=== PATIENT | female | born 1960 | race Caucasian/White ===

== ENCOUNTER 2024-05-31 12:10 | Day surgery (SDC) | payer OTHER, SELFPAY ==
[2024-05-31 12:36] VITALS: BP 120/74; PULSE 88; RESP 20; TEMP 36.7; O2SAT 96
[2024-05-31] MEDS: Tropicam./Phenyleph. (1/2.5%) 5 ML BTL OD ×3 (12:58→13:10)
--- NOTE | 2024-05-31 13:18 | W.ANESPRE ---
General Info Date of Service Date Performed: 05/31/24 Height: 5 ft 4 in Weight: 70.3 kg Body Mass Index (BMI): 26.6 Surgical Procedure: Operation Date: 05/31/24 14:40 Proposed Procedure Side Surgeon p Cataract Extraction with IOL Implant Right Aquiles Rodriguez MD Meds Allergies and Home Medications Allergies Allergy/AdvReac Type Severity Reaction Status Date / Time bisoprolol Allergy Unknown Skin Rash Verified 05/31/24 12:53 iodine Allergy Hives Verified 05/31/24 12:53 Sulfa (Sulfonamide Allergy Hives Verified 05/31/24 12:53 Antibiotics) absorbable suture material AdvReac Unknown Other (See Uncoded 05/31/24 12:53 Comment) Home Medication ?Medication ?Instructions ?Recorded rosuvastatin 10 mg tablet 40 mg PO DAILY 11/02/21 cholecalciferol (vitamin D3) 25 25 mcg PO DAILY 11/23/22 mcg (1,000 unit) capsule conjugated estrogens 0.625 mg/gram 0.625 mg vaginal .COMPLEX 11/23/22 vaginal cream (Premarin) cyanocobalamin (vitamin B-12) 1,000 mcg PO DAILY 11/23/22 1,000 mcg capsule omeprazole 40 mg capsule,delayed 40 mg PO DAILY 11/23/22 release trazodone 100 mg tablet 100 mg PO QHS PRN 11/23/22 diclofenac sodium 100 mg 100 mg PO DAILY 05/28/24 tablet,extended release 24 hr methylphenidate HCl 54 mg 54 mg PO DAILY 05/28/24 tablet,extended release 24 hr (Concerta) venlafaxine 150 mg 150 mg PO DAILY 05/28/24 capsule,extended release 24 hr (Effexor XR) venlafaxine 37.5 mg 37.5 mg PO DAILY 05/28/24 capsule,extended release 24 hr (Effexor XR) vitamin B complex (Vitamins B 1 tab PO DAILY 05/28/24 Complex tablet) Current Visit Medications: Current Medications Generic Name Dose Route Start Last Admin Trade Name Freq PRN Reason Stop Dose Admin Acetaminophen 1,000 mg 05/31/24 06:00 Acetaminophen 500 Mg Tab PO 06/30/24 05:59 Q4H PRN PRN Balanced Salt Solution 500 ml 05/31/24 06:00 Balanced Salt Soln.-Plus 500 Ml Bag OP 06/30/24 05:59 DIRECTED SUSAN Miscellaneous Medication 0 ml 05/31/24 06:00 Prednisolone 1%, Moxifloxacin 0.5%, Bromfenac 0.09% 5.6ml Btl OD 06/30/24 05:59 DIRECTED SUSAN Miscellaneous Medication 0 ml 05/31/24 06:00 05/31/24 13:10 Tropicam./Phenyleph. (1/2.5%) 5 Ml Btl OD 06/30/24 05:59 1 drp DIRECTED SUSAN Administration Tetracaine HCl 0 ml 05/31/24 06:00 Tetracaine 0.5% 4 Ml Btl OD 06/30/24 05:59 DIRECTED SUSAN PFSH Active Problems Active Problems: Problem Status Onset Code Posterior subcapsular age-related cataract, right eye Acute H25.041 Nuclear age-related cataract, right eye Acute H25.11 Acquired hammertoe of right foot Acute M20.41 Acquired hammertoe of left foot Acute M20.42 Hallux valgus (acquired), left foot Acute M20.12 Hallux valgus (acquired), right foot Acute M20.11 Callus under metatarsal head Acute L84 TMJ (temporomandibular joint disorder) Acute M26.609 Ear fullness Acute H93.8X9 Sensorineural hearing loss (SNHL) of both ears Acute H90.3 Atrial fibrillation Chronic I48.91 Hyperlipidemia Acute E78.5 Medical History Medical History Mood disorder History of hormone replacement therapy Bilateral knee pain Menopause Adjustment disorder Surgical History Surgical History History of bladder surgery 2021-Sling History of total knee replacement 2021 Status post breast reduction History of bunionectomy H/O: hysterectomy H/O colonoscopy 12/18/20 Tobacco Smoking/Tobacco Use Status: Former Tobacco Use Alcohol Alcohol Intake: never Substance Use Substance use: Never Substance use type: marijuana and sedatives Vital Signs and Lab Results Vital Signs Most Recent Vital Signs in EMR: Most Recent Vital Signs Temp Pulse Resp BP Pulse Ox 36.7 C 88 20 120/74 96 05/31/24 12:36 05/31/24 12:36 05/31/24 12:36 05/31/24 12:36 05/31/24 12:36 Lab Results Blood Type / Crossmatch: No Data to Display Complete Blood Count: No Data to Display Complete Metabolic Panel: No Data to Display Liver Function Panel: No Data to Display Coagulation Panel: No Data to Display Cardiac Panel: No Data to Display Arterial Blood Gas: No Data to Display Venous Blood Gas: No Data to Display Pancreas Panel: No Data to Display Thyroid Panel: No Data to Display Infectious Disease: No Data to Display Blood Cultures: No Data to Display Toxicology Panel: No Data to Display Anesthesia Assessment and Plan Anesthesia History Personal History: No History of Anesthesia Complications Family History: No Family History of Anesthesia Complications Exercise Tolerance Exercise Tolerance: Metabolic Equivalents>4 Pertinent Negatives Pertinent Negatives: No Major Cardiovascular Symptoms or Complaints and No Major Pulmonary Symptoms or Complaints Cardiac & Pulmonary Exam Cardiac Exam: Normal S1/S2 Heart Sounds Pulmonary Exam: Clear Bilateral Breath Sounds Implantable Cardiac Device Does patient have a Pacemaker or an ICD?: No Airway Exam Known Difficult Airway: No Mallampati Class: 2 Mouth Opening: Normal (> 3cm) Thyromental Distance: Greater than 3 cm Neck Range of Motion: Full ROM Neck Circumference: Normal Teeth Condition: Normal Dentition ASA Classification ASA Score: ASA 2 Emergency Case?: No NPO Status NPO Status: NPO Clears >2 hours, Solids >8 hours Anesthesia Plan Resuscitation Status: Full Code Anesthesia Technique: MAC Anesthesia Airway Planned: Natural Airway Monitors Used: Standard Monitors Preoperative Comments:: HUONG given
[2024-05-31 13:30] VITALS: BMI 26.6
[2024-05-31] MEDS: Tetracaine 0.5% 4 ML BTL OD (13:41)
[2024-05-31] MEDS: Duovisc Viscoelastic System EACH 1 EACH (13:47)
[2024-05-31] MEDS: Lidocaine 1% Pres-Free 5 ML VIAL (13:48)
[2024-05-31] MEDS: Povidone-Iodine Ophth 30 ML BTL (13:49)
[2024-05-31] MEDS: Phenylephrine/Lidocaine (15/10) MG/ML 1 ML VIAL (13:49)
[2024-05-31] MEDS: Prednisolone 1%, Moxifloxacin 0.5%, Bromfenac 0.09% 5.6ML BTL OD (13:50)
[2024-05-31] MEDS: Balanced Salt Soln.-PLUS 500 ML BAG OP (13:50)
--- NOTE | 2024-05-31 14:01 | W.PM.DSUDISC ---
Date of service: 05/31/24 Discharge Plan Disposition Patient Disposition: Home Discharge Details Attending Provider: Aquiles Rodriguez Primary Care Provider: Anusha Valera Home Meds and New Rx's Prescriptions: No Action omeprazole 40 mg capsule,delayed release(DR/EC) 40 mg PO DAILY Premarin 0.625 mg/gram cream 0.625 mg vaginal .COMPLEX Rx Instructions: 0.625 mg vaginally; off 5 days; repeat cycle to apply Mon/ trazodone 100 mg tablet 100 mg PO QHS PRN cyanocobalamin (vitamin B-12) 1,000 mcg capsule 1,000 mcg PO DAILY cholecalciferol (vitamin D3) 25 mcg (1,000 unit) capsule 25 mcg PO DAILY rosuvastatin 10 mg tablet 40 mg PO DAILY venlafaxine [Effexor XR] 37.5 mg capsule,extended release 24hr 37.5 mg PO DAILY venlafaxine [Effexor XR] 150 mg capsule,extended release 24hr 150 mg PO DAILY vitamin B complex [Vitamins B Complex] Tablet 1 tab PO DAILY diclofenac sodium 100 mg tablet extended release 24 hr 100 mg PO DAILY methylphenidate HCl [Concerta] 54 mg tablet extended release 24hr 54 mg PO DAILY Discharge Instructions Stand Alone Forms: DSU Post-Op CataractIzabella ([facility]U) Discharge Orders Discharge Orders: Discharge Order (Routine); Ordered 05/31/24 Ordered By: Aquiles Rodriguez DS: Diagnosis Discharge Diagnosis (1) Posterior subcapsular age-related cataract, right eye: Status: Resolved (2) Nuclear age-related cataract, right eye: Status: Resolved
--- NOTE | 2024-05-31 14:02 | W.PM.OP ---
Operative Note Operative Note PRE-OP DIAGNOSIS: Nuclear/posterior subcapsular cataract, right eye POST-OP DIAGNOSIS: same PROCEDURE: Cataract extraction using phacoemulsification with intraocular lens implant, right eye SURGEON: Aquiles Rodriguez ANESTHESIA TYPE: Local By Surgeon and MAC Refer to Anesthesia Record ESTIMATED BLOOD LOSS: 0 PATHOLOGY: none sent COMPLICATIONS: None Patient was transported to: same day Patient's condition: stable Implants: Cayden [employer] Cayden Tecnis Eyhance [id number] Indications: Progressive visual loss due to cataract, right eye Procedure Description: CATARACT SURGERY OPERATIVE REPORT PREOPERATIVE DIAGNOSIS: 1. Nuclear/posterior subcapsular cataract, right eye POSTOPERATIVE DIAGNOSIS: Same OPERATION: 1. Cataract extraction using phacoemulsification with posterior chamber intraocular lens implant, right eye. IOL: IOL Retail Support Associate/Model: Cayden & Cayden Tecnis Eyhance DIB00 IOL Power: + 24.0 diopters IOL Serial Number: [id number] Optic Diameter: 6.0mm Haptic/Overall Diameter: 13.0mm PHACO INFO: TomasMangstorurion Vision System with OZil and Active Fluidics Cumulative Dispersed Energy (CDE): 4.33 seconds SURGEON: Aquiles Rodriguez MD, RADHA ANESTHESIA: Monitored Anesthesia Care (MAC), with local sub-tenon's anesthetic infiltration COMPLICATIONS: None SPECIMENS: None INDICATIONS FOR PROCEDURE: The patient is a 63-year-old lady with history of diminished visual acuity in her right eye secondary to the development of nuclear/posterior subcapsular cataract. She is significantly symptomatic that she desires cataract surgery in attempt to improve and maximize her vision. The option of cataract surgery was offered to the patient and she wished to proceed. See office notes for detailed information. PROCEDURE: The correct surgical eye was identified and marked as the right eye and the pupil was dilated in the preoperative area using mydriatics and cycloplegics. The dilated pupil size was 6.0 mm. Oral sedation was administered in the form of an Imprimis MKO Melt (midazolam 3mg/ketamine 25mg/ondansetron 2mg). The patient was brought to the operating room where cardiopulmonary monitoring was instituted and surgical time-out was performed, confirming the correct operative eye and IOL power. Topical anesthesia was administered and ophthalmic povidone-iodine 5% was instilled into the conjunctival fornices. The samir-ocular area was prepped with Betadine 10% solution and draped in the usual sterile fashion for intraocular surgery, including an aperture drape. A Tegaderm transparent film dressing was cut in half and used to cover the lashes and lid margins. Care was taken to sequester the lashes and lid margins under the Tegaderm dressing. A lid speculum was placed between the lids of the operative eye and the Tomas LuxOR Revalia operating microscope was maneuvered into position. Jair scissors were then used to make a conjunctival buttonhole approximately 6mm posterior to the limbus in the inferonasal quadrant. Blunt dissection was carried out to expose bare sclera, and a blunt-tipped sub-tenon?s anesthesia cannula was introduced and passed posteriorly along the globe where non-preserved plain lidocaine was injected into posterior sub-Tenon?s space. A sideport knife was used to make a paracentesis port. Intraocular phenylephrine/lidocaine was injected into the anterior chamber. The anterior chamber was filled with viscoelastic. A keratome knife was used to construct a 2-plane clear corneal tunnel extending 2.0mm into clear cornea. A flap was raised on the anterior capsule and capsulorhexis forceps were used to complete a continuous curvilinear capsulorhexis of 5.0 mm. Balanced salt solution was then used to perform cortical cleaving hydrodissection and nuclear hydrodelineation until the lens could be freely rotated within the capsular bag. The lens nucleus was then disassembled and removed within the capsular bag and iris plane using phacoemulsification. Residual cortical material was removed using the I/A handpiece. The posterior capsule was carefully polished to remove as much residual lens epithelial cells as safely possible. The capsular bag was then inflated and the anterior chamber deepened with cohesive viscoelastic. The lens implant described above was inserted into the capsular bag using the Cayden and Samson Simplicity pre-loaded injector. A Kuglen hook was used to dial the IOL into position. Residual viscoelastic was then removed first from posterior to the IOL, then from the anterior chamber using the I/A handpiece. The lens implant was noted to center nicely within the capsular bag. The incisions were stromally hydrated, and the anterior chamber was reformed using BSS. Then 0.5cc of moxifloxacin 1.0mg/ml were injected into the capsular bag and anterior chamber. The incisions were checked with a Weck spear and found to be secure. Several drops of ophthalmic povidone-iodine 5% were then applied to the eye followed by two drops ocombination steroid/NSAID/antibiotic solution. The drapes were removed and a clear plastic protective eye shield was placed over the eye. The patient was then returned to Same Day Surgery in stable condition. Date of Procedure: 05/31/24
[2024-05-31 14:06] VITALS: BP 110/83; PULSE 83; RESP 17; TEMP 36.3; O2SAT 100
[2024-05-31 14:35] VITALS: BP 108/84; PULSE 82; RESP 20; TEMP 36.4; O2SAT 97
--- NOTE | 2024-05-31 14:38 | W.ANESPOSTOP ---
Postoperative Evaluation Date, Time and Location Date Performed: 05/31/24 Time Performed: 14:06 Patient Location: Day Surgery Unit Vital Signs Most Recent Imported Vital Signs: Most Recent Vital Signs Temp Pulse Resp BP Pulse Ox 36.3 C L 83 17 110/83 100 05/31/24 14:06 05/31/24 14:06 05/31/24 14:06 05/31/24 14:06 05/31/24 14:06 Pain Score Most Recent Pain Score: Most Recent Pain Score Pain Level 0 05/31/24 14:06 Assessment Mental Status: Awake (Alert & Oriented to Patient Baseline) Airway and Respiratory Function: Patent airway with normal (patient baseline) respiratory exam Cardiovascular Function: Hemodynamically Stable Hydration Status: Adequately Hydrated Nausea & Vomiting: No Nausea or Vomiting Pain: Pt. Denies Any Pain Peripheral Nerve Block: Patient did not receive a nerve block
== END 2024-05-31 14:42 | disposition home or self-care (01) ==
LOC: SUR 12:10
PROVIDERS: PCP Nurse Practitioner Family; Visit Provider Ophthalmology
PROC: (CPT 66984; principal; 2024-05-31 14:30)
DX: H25.041 Posterior subcapsular polar age-related cataract, right eye (principal); H25.11 Age-related nuclear cataract, right eye
CPT/HCPCS: 66984; 00123; V2632; J2003

== ENCOUNTER 2024-06-07 06:45 | Day surgery (SDC) | payer OTHER, SELFPAY ==
--- NOTE | 2024-06-07 06:29 | ANES.PREOP_ITS ---
General Info Date of Service Date Performed: 06/07/24 Height: 5 ft 4 in Weight: 70.3 kg Body Mass Index (BMI): 26.6 Surgical Procedure: Operation Date: 06/07/24 08:40 Proposed Procedure Side Surgeon p Cataract Extraction with IOL Implant Left Aquiles Rodriguez MD Meds Allergies and Home Medications Allergies Allergy/AdvReac Type Severity Reaction Status Date / Time bisoprolol Allergy Unknown Skin Rash Verified 06/07/24 07:01 iodine Allergy Hives Verified 06/07/24 07:01 Sulfa (Sulfonamide Allergy Hives Verified 06/07/24 07:01 Antibiotics) absorbable suture material AdvReac Unknown Other (See Uncoded 06/07/24 07:01 Comment) Home Medication ?Medication ?Instructions ?Recorded rosuvastatin 10 mg tablet 40 mg PO DAILY 11/02/21 cholecalciferol (vitamin D3) 25 25 mcg PO DAILY 11/23/22 mcg (1,000 unit) capsule conjugated estrogens 0.625 mg/gram 0.625 mg vaginal .COMPLEX 11/23/22 vaginal cream (Premarin) cyanocobalamin (vitamin B-12) 1,000 mcg PO DAILY 11/23/22 1,000 mcg capsule omeprazole 40 mg capsule,delayed 40 mg PO DAILY 11/23/22 release trazodone 100 mg tablet 100 mg PO QHS PRN 11/23/22 diclofenac sodium 100 mg 100 mg PO DAILY 05/28/24 tablet,extended release 24 hr methylphenidate HCl 54 mg 54 mg PO DAILY 05/28/24 tablet,extended release 24 hr (Concerta) venlafaxine 150 mg 150 mg PO DAILY 05/28/24 capsule,extended release 24 hr (Effexor XR) venlafaxine 37.5 mg 37.5 mg PO DAILY 05/28/24 capsule,extended release 24 hr (Effexor XR) vitamin B complex (Vitamins B 1 tab PO DAILY 05/28/24 Complex tablet) Current Visit Medications: Current Medications Generic Name Dose Route Start Last Admin Trade Name Freq PRN Reason Stop Dose Admin Acetaminophen 1,000 mg 06/07/24 06:00 Acetaminophen 500 Mg Tab PO 07/07/24 05:59 Q4H PRN PRN Balanced Salt Solution 500 ml 06/07/24 06:00 Balanced Salt Soln.-Plus 500 Ml Bag OP 07/07/24 05:59 DIRECTED SUSAN Miscellaneous Medication 0 ml 06/07/24 06:00 Prednisolone 1%, Moxifloxacin 0.5%, Bromfenac 0.09% 5.6ml Btl OS 07/07/24 05:59 DIRECTED [facility] Miscellaneous Medication 0 ml 06/07/24 06:00 Tropicam./Phenyleph. (1/2.5%) 5 Ml Btl OS 07/07/24 05:59 DIRECTED SUSAN Tetracaine HCl 0 ml 06/07/24 06:00 Tetracaine 0.5% 4 Ml Btl OS 07/07/24 05:59 DIRECTED SUSAN PFSH Active Problems Active Problems: Problem Status Onset Code Posterior subcapsular age-related cataract of left eye Acute H25.042 Nuclear age-related cataract, left eye Acute H25.12 Posterior subcapsular age-related cataract, right eye Resolved H25.041 Nuclear age-related cataract, right eye Resolved H25.11 Acquired hammertoe of right foot Acute M20.41 Acquired hammertoe of left foot Acute M20.42 Hallux valgus (acquired), left foot Acute M20.12 Hallux valgus (acquired), right foot Acute M20.11 Callus under metatarsal head Acute L84 TMJ (temporomandibular joint disorder) Acute M26.609 Ear fullness Acute H93.8X9 Sensorineural hearing loss (SNHL) of both ears Acute H90.3 Atrial fibrillation Chronic I48.91 Hyperlipidemia Acute E78.5 Medical History Medical History Mood disorder History of hormone replacement therapy Bilateral knee pain Menopause Adjustment disorder Surgical History Surgical History History of bladder surgery 2021-Sling History of total knee replacement 2021 Status post breast reduction History of bunionectomy H/O: hysterectomy H/O colonoscopy 12/18/20 Tobacco Smoking/Tobacco Use Status: Former Tobacco Use Alcohol Alcohol Intake: never Substance Use Substance use: Never Substance use type: marijuana and sedatives Vital Signs and Lab Results Vital Signs Most Recent Vital Signs in EMR: Temp Pulse Resp BP Pulse Ox 36.4 C L 84 18 116/77 97 06/07/24 06:49 06/07/24 06:49 06/07/24 06:49 06/07/24 06:49 06/07/24 06:49 Lab Results Blood Type / Crossmatch: No Data to Display Complete Blood Count: No Data to Display Complete Metabolic Panel: No Data to Display Liver Function Panel: No Data to Display Coagulation Panel: No Data to Display Cardiac Panel: No Data to Display Arterial Blood Gas: No Data to Display Venous Blood Gas: No Data to Display Pancreas Panel: No Data to Display Thyroid Panel: No Data to Display Infectious Disease: No Data to Display Blood Cultures: No Data to Display Toxicology Panel: No Data to Display Anesthesia Assessment and Plan Anesthesia History Personal History: No History of Anesthesia Complications Family History: No Family History of Anesthesia Complications Exercise Tolerance Exercise Tolerance: Metabolic Equivalents>4 Cardiac & Pulmonary Exam Cardiac Exam: Normal S1/S2 Heart Sounds Pulmonary Exam: Clear Bilateral Breath Sounds Implantable Cardiac Device Does patient have a Pacemaker or an ICD?: No Airway Exam Known Difficult Airway: No Mallampati Class: 2 Mouth Opening: Normal (> 3cm) Thyromental Distance: Greater than 3 cm Neck Range of Motion: Full ROM Neck Circumference: Normal Teeth Condition: Normal Dentition ASA Classification ASA Score: ASA 2 Emergency Case?: No NPO Status NPO Status: NPO Clears >2 hours, Solids >8 hours Anesthesia Plan Resuscitation Status: Full Code Anesthesia Technique: MAC Anesthesia Airway Planned: Natural Airway Monitors Used: Standard Monitors Preoperative Comments:: Repeat cataract MKO given last time, no issues. no health history changes.
[2024-06-07 06:49] VITALS: BP 116/77; PULSE 84; RESP 18; TEMP 36.4; O2SAT 97
[2024-06-07] MEDS: Tropicam./Phenyleph. (1/2.5%) 5 ML BTL OS ×3 (07:04→07:13)
[2024-06-07 07:28] VITALS: BMI 26.6
[2024-06-07] MEDS: Lidocaine 1% Pres-Free 5 ML VIAL (08:23)
[2024-06-07] MEDS: Duovisc Viscoelastic System EACH 1 EACH (08:25)
[2024-06-07] MEDS: Povidone-Iodine Ophth 30 ML BTL (08:26)
[2024-06-07] MEDS: Phenylephrine/Lidocaine (15/10) MG/ML 1 ML VIAL (08:26)
[2024-06-07] MEDS: Balanced Salt Soln.-PLUS 500 ML BAG OP (08:27)
[2024-06-07] MEDS: Tetracaine 0.5% 4 ML BTL OS (08:28)
[2024-06-07] MEDS: Prednisolone 1%, Moxifloxacin 0.5%, Bromfenac 0.09% 5.6ML BTL OS (08:28)
[2024-06-07 08:39] VITALS: BP 106/68; PULSE 73; RESP 16; TEMP 36.2; O2SAT 96
--- NOTE | 2024-06-07 08:39 | W.PM.DSUDISC ---
Date of service: 06/07/24 Discharge Plan Disposition Patient Disposition: Home Discharge Details Attending Provider: Aquiles Rodriguez Primary Care Provider: Anusha Valera Home Meds and New Rx's Prescriptions: No Action omeprazole 40 mg capsule,delayed release(DR/EC) 40 mg PO DAILY Premarin 0.625 mg/gram cream 0.625 mg vaginal .COMPLEX Rx Instructions: 0.625 mg vaginally; off 5 days; repeat cycle to apply Mon/ trazodone 100 mg tablet 100 mg PO QHS PRN cyanocobalamin (vitamin B-12) 1,000 mcg capsule 1,000 mcg PO DAILY cholecalciferol (vitamin D3) 25 mcg (1,000 unit) capsule 25 mcg PO DAILY rosuvastatin 10 mg tablet 40 mg PO DAILY venlafaxine [Effexor XR] 37.5 mg capsule,extended release 24hr 37.5 mg PO DAILY venlafaxine [Effexor XR] 150 mg capsule,extended release 24hr 150 mg PO DAILY vitamin B complex [Vitamins B Complex] Tablet 1 tab PO DAILY diclofenac sodium 100 mg tablet extended release 24 hr 100 mg PO DAILY methylphenidate HCl [Concerta] 54 mg tablet extended release 24hr 54 mg PO DAILY Discharge Instructions Stand Alone Forms: DSU Post-Op CataractIzabella ([facility]U) Discharge Orders Discharge Orders: Discharge Order (Routine); Ordered 06/07/24 Ordered By: Aquiles Rodriguez DS: Diagnosis Discharge Diagnosis (1) Posterior subcapsular age-related cataract of left eye: Status: Resolved (2) Nuclear age-related cataract, left eye: Status: Resolved
--- NOTE | 2024-06-07 08:41 | ROE_ITS ---
Operative Note Operative Note PRE-OP DIAGNOSIS: Nuclear/posterior subcapsular cataract, left eye POST-OP DIAGNOSIS: same PROCEDURE: Cataract extraction using phacoemulsification with intraocular lens implant, left eye SURGEON: Aquiles Rodriguez ANESTHESIA TYPE: Local By Surgeon and MAC Refer to Anesthesia Record PATHOLOGY: none sent COMPLICATIONS: None Patient was transported to: same day Patient's condition: stable Implants: Cayden and Cayden Tecnis Eyhance [id number] Indications: Progressive decreased vision due to cataract, left eye Procedure Description: CATARACT SURGERY OPERATIVE REPORT PREOPERATIVE DIAGNOSIS: 1. Nuclear/posterior subcapsular cataract, left eye POSTOPERATIVE DIAGNOSIS: Same OPERATION: 1. Cataract extraction using phacoemulsification with posterior chamber intraocular lens implant, left eye. IOL: IOL Carpenter General/Model: Cayden & Cayden Tecnis Eyhance DIB00 IOL Power: + 23.5 diopters IOL Serial Number: [id number] Optic Diameter: 6.0 mm Haptic/Overall Diameter: 13.0 mm PHACO INFO: Tomas LogicLadderurion Vision System with OZil and Active Fluidics Cumulative Dispersed Energy (CDE): 4.88 seconds SURGEON: Aquiles Rodriguez MD, RADHA ANESTHESIA: Monitored A [facility] (MAC), with local sub-tenon's anesthetic infiltration COMPLICATIONS: None SPECIMENS: None INDICATIONS FOR PROCEDURE: The patient is a 63-year-old lady with history of diminished visual acuity in both eyes secondary to the development of bilateral nuclear/posterior subcapsular cataract. She is significantly symptomatic that she desires cataract surgery and attempt to improve and maximize her vision. She has already undergone cataract surgery in the right eye and is doing well postoperatively. She now presents for cataract surgery in the left eye. See office notes for detailed information. PROCEDURE: The correct surgical eye was identified and marked as the left eye and the pupil was dilated in the preoperative area using mydriatics and cycloplegics. The dilated pupil size was 7.0 mm. Oral sedation was administered in the form of an Imprimis MKO Melt (midazolam 3mg/ketamine 25mg/ondansetron 2mg). The patient was brought to the operating room where cardiopulmonary monitoring was instituted and surgical time-out was performed, confirming the correct operative eye and IOL power. Topical anesthesia was administered and ophthalmic povidone-iodine 5% was instilled into the conjunctival fornices. The samir-ocular area was prepped with Betadine 10% solution and draped in the usual sterile fashion for intraocular surgery, including an aperture drape. A Tegaderm transparent film dressing was cut in half and used to cover the lashes and lid margins. Care was taken to sequester the lashes and lid margins under the Tegaderm dressing. A lid speculum was placed between the lids of the operative eye and the Tomas LuxOR Revalia operating microscope was maneuvered into position. Jair scissors were then used to make a conjunctival buttonhole approximately 6mm posterior to the limbus in the inferonasal quadrant. Blunt dissection was carried out to expose bare sclera, and a blunt-tipped sub-tenon?s anesthesia cannula was introduced and passed posteriorly along the globe where non- preserved plain lidocaine was injected into posterior sub-Tenon?s space. A sideport knife was used to make a paracentesis port. Intraocular phenylephrine/lidocaine was injected into the anterior chamber.. The anterior chamber was filled with viscoelastic. A keratome knife was used to construct a 2-plane near-clear corneal tunnel extending 2.0mm into clear cornea. A flap was raised on the anterior capsule and capsulorhexis forceps were used to complete a continuous curvilinear capsulorhexis of 5.0 mm. Balanced salt solution was then used to perform cortical cleaving hydrodissection and nuclear hydrodelineation until the lens could be freely rotated within the capsular bag. The lens nucleus was then disassembled and removed within the capsular bag and iris plane using phacoemulsification. Residual cortical material was removed using the irrigation/aspiration handpiece. The posterior capsule was carefully polished to remove as much residual lens epithelial cells as safely possible. The capsular bag was then inflated and the anterior chamber deepened with viscoelastic. The lens implant described above was inserted into the capsular bag using the Cayden and Cayden Simplicity pre-loaded injector. A Kuglen hook was used to dial the IOL into position. Residual viscoelastic was then removed first from posterior to the IOL, then from the anterior chamber using the I/A handpiece. The lens implant was noted to center nicely within the capsular bag. The incisions were stromally hydrated, and the anterior chamber was reformed using BSS. Then 0.5cc of moxifloxacin 1.0mg/ml were injected into the capsular bag and anterior chamber. The incisions were checked with a Weck spear and found to be secure. Several drops of ophthalmic povidone-iodine 5% were then applied to the eye followed by two drops of Imprimis combination prednisolone/moxifloxacin/nepafenac solution. The drapes were removed and a clear plastic protective eye shield was placed over the eye. The patient was then returned to Same Day Surgery in stable condition. Date of Procedure: 06/07/24
--- NOTE | 2024-06-07 08:55 | W.ANESPOSTOP ---
Postoperative Evaluation Date, Time and Location Date Performed: 06/07/24 Time Performed: 08:45 Patient Location: Day Surgery Unit Vital Signs Most Recent Imported Vital Signs: Most Recent Vital Signs Temp Pulse Resp BP Pulse Ox 36.2 C L 73 16 106/68 96 06/07/24 08:39 06/07/24 08:39 06/07/24 08:39 06/07/24 08:39 06/07/24 08:39 Pain Score Most Recent Pain Score: Most Recent Pain Score Pain Level 0 06/07/24 08:39 Assessment Mental Status: Awake (Alert & Oriented to Patient Baseline) Airway and Respiratory Function: Patent airway with normal (patient baseline) respiratory exam Cardiovascular Function: Hemodynamically Stable Hydration Status: Adequately Hydrated Nausea & Vomiting: No Nausea or Vomiting Pain: Pt. Denies Any Pain Peripheral Nerve Block: Patient did not receive a nerve block
[2024-06-07 09:01] VITALS: BP 97/70; PULSE 88; RESP 16; TEMP 36.3; O2SAT 96
== END 2024-06-07 09:10 | disposition home or self-care (01) ==
LOC: SUR 06:45
PROVIDERS: PCP Nurse Practitioner Family; Visit Provider Ophthalmology
PROC: (CPT 66984; principal; 2024-06-07 08:30)
DX: H25.042 Posterior subcapsular polar age-related cataract, left eye (principal); H25.12 Age-related nuclear cataract, left eye; Z98.41 Cataract extraction status, right eye
CPT/HCPCS: 66984; 00123; V2632; J2003

== ENCOUNTER 2024-11-26 09:59 | Emergency (ER) | payer OTHER, SELFPAY ==
[2024-11-26 10:02] VITALS: BP 140/85; PULSE 100; RESP 16; TEMP 36.6; O2SAT 98
--- NOTE | 2024-11-26 10:11 | W.ED.GENAD ---
Discharge Plan Disposition Patient Disposition: Home Condition: Stable Discharge Details Clinical Impression: Gastroenteritis, Hypomagnesemia Primary Care Provider: Anusha Valera ED Provider: Eulogio Smith Home Meds and New Rx's Prescriptions: New ondansetron 4 mg tablet,disintegrating 4 mg PO Q8H PRNQty: 30 0RF Continued omeprazole 40 mg capsule,delayed release(DR/EC) 40 mg PO DAILY Premarin 0.625 mg/gram cream 0.625 mg vaginal .COMPLEX Rx Instructions: 0.625 mg vaginally; off 5 days; repeat cycle to apply Mon/ trazodone 100 mg tablet 100 mg PO QHS PRN cyanocobalamin (vitamin B-12) 1,000 mcg capsule 1,000 mcg PO DAILY cholecalciferol (vitamin D3) 25 mcg (1,000 unit) capsule 25 mcg PO DAILY rosuvastatin 10 mg tablet 40 mg PO DAILY diazepam 2 mg tablet 2 mg PO ONCE PRN hydroxychloroquine 200 mg tablet 200 mg PO BID venlafaxine [Effexor XR] 150 mg capsule,extended release 24hr 75 mg PO DAILY vitamin B complex [Vitamins B Complex] Tablet 1 tab PO DAILY diclofenac sodium 100 mg tablet extended release 24 hr 100 mg PO DAILY methylphenidate HCl [Concerta] 54 mg tablet extended release 24hr 54 mg PO DAILY Discharge Instructions Instructions: Viral gastroenteritis in adults, Ondansetron, Hypomagnesemia Additional Instructions: You were seen in the emergency department for your 3-day illness of nausea, vomiting, diarrhea. I do suspect you have a viral gastroenteritis and your CT shows colitis which is nonspecific, your stool studies are pending, please check these on the portal if something is positive someone will contact you and send you appropriate medication. Until then treat this as a viral stomach bug use the Zofran as we discussed 3 times per day 20 to 30 minutes before mealtimes, use [id number] Imodium A-D, stay well-hydrated, your mild hypomagnesemia should resolve with normal p.o. intake, taking a multivitamin with magnesium would be a good idea. Please return to the emergency department for any severe increase in abdominal pain, fever, failure to resolve intractable nausea/vomiting/diarrhea despite treatment, or any other emergent concerns. Referrals: Anusha Valera [Primary Care Provider] - [facility] General Date/Time Provider Initiated Documentation: 11/26/24 10:08. HPI Narrative: 64 year-old female presents to ED today by POV/ambulating with her with a chief complaint of nausea/vomiting/diarrhea with onset 3 days ago, intractable. Quality described as generalized abdominal cramping, completely liquid diarrhea, no radiation to fever, cough, shortness of breath, chest pain, black/bloody diarrhea, coffee-ground emesis. Severity is described as severe. Palliating factors include tried dramamine for nausea. Provoking factors include nothing specific. Events leading up to the incident/Associated Symptoms: Patient endorses history appendectomy, hysterectomy, and diverticulosis. Patient not anticoagulated. Related Data Home Medications ?Medication ?Instructions ?Recorded ?Confirmed rosuvastatin 10 mg tablet 40 mg PO DAILY 11/02/21 11/26/24 cholecalciferol (vitamin D3) 25 25 mcg PO DAILY 11/23/22 11/26/24 mcg (1,000 unit) capsule conjugated estrogens 0.625 mg/gram 0.625 mg vaginal .COMPLEX 11/23/22 11/26/24 vaginal cream (Premarin) cyanocobalamin (vitamin B-12) 1,000 mcg PO DAILY 11/23/22 11/26/24 1,000 mcg capsule omeprazole 40 mg capsule,delayed 40 mg PO DAILY 11/23/22 11/26/24 release trazodone 100 mg tablet 100 mg PO QHS PRN 11/23/22 11/26/24 diclofenac sodium 100 mg 100 mg PO DAILY 05/28/24 11/26/24 tablet,extended release 24 hr methylphenidate HCl 54 mg 54 mg PO DAILY 05/28/24 11/26/24 tablet,extended release 24 hr (Concerta) venlafaxine 150 mg 75 mg PO DAILY 05/28/24 11/26/24 capsule,extended release 24 hr (Effexor XR) vitamin B complex (Vitamins B 1 tab PO DAILY 05/28/24 11/26/24 Complex tablet) diazepam 2 mg tablet 2 mg PO ONCE PRN 11/21/24 11/26/24 hydroxychloroquine 200 mg tablet 200 mg PO BID 11/21/24 11/26/24 ondansetron 4 mg disintegrating 4 mg PO Q8H PRN #30 tabs 11/26/24 tablet Previous Rx's ?Medication ?Instructions ?Recorded ondansetron 4 mg disintegrating 4 mg PO Q8H PRN #30 tabs 11/26/24 tablet Allergies Allergy/AdvReac Type Severity Reaction Status Date / Time bisoprolol Allergy Unknown Skin Rash Verified 11/26/24 10:07 iodine Allergy Hives Verified 11/26/24 10:07 Sulfa (Sulfonamide Allergy Hives Verified 11/26/24 10:07 Antibiotics) absorbable suture material AdvReac Unknown Other (See Uncoded 11/26/24 10:07 Comment) General Stated Complaint: Nausea/Vomit/Diar LEYDA: 3 Review of Systems All systems reviewed & are unremarkable except as noted in HPI and below Exam Narrative Exam Narrative: GENERAL APPEARANCE: Well-nourished, non-toxic, awake and alert, atraumatic, no acute distress. SKIN: Warm, pink, dry, intact, without rashes/lesions/ulcerations. HEAD: Normocephalic, atraumatic, normal hair distribution for gender/age. EYES: Normal conjunctiva, no exudates on lids/lashes. ENT: Nares patent, no circumoral cyanosis, no facial swelling NECK: Supple, trachea midline, painless cervical ROM. LUNGS/CHEST: Lungs CTA bilaterally, non-labored respirations, normal A/P diameter, symmetrical expansion, no chest wall deformity HEART (CV/PV): Regular rate and rhythm without murmur, no peripheral edema, no JVD. ABDOMEN: Soft, non-distended, no guarding, mild left lower quadrant abdominal tenderness. MSK: Normal ROM, no swelling/deformity to bilateral UEs or LEs, moving all extremities without weakness, no cyanosis, spine midline without tenderness, normal curvature. NEURO: Mental Status AAOx4 - alert to person, place, time, events No facial droop, no forehead involvement. Motor: No focal weakness - strength 5/5 in bilateral UEs and LEs, proximal and distal, symmetric. Sensory: sensation intact to light touch globally. Gait normal: patient ambulated without ataxia into ED room. PSYCH: euthymic, cooperative, pleasant, appropriate speech Course Vital Signs Vital signs: Vital Signs Temperature 36.6 C 11/26/24 10:02 Pulse 100 H 11/26/24 10:02 Respiratory Rate 16 11/26/24 10:02 Blood Pressure 140/85 11/26/24 10:02 Pulse Oximetry 98 11/26/24 10:02 Temperature 36.6 C 11/26/24 10:02 Temperature Source Oral 11/26/24 10:02 Pulse 100 H 11/26/24 10:02 Respiratory Rate 16 11/26/24 10:02 Blood Pressure 140/85 11/26/24 10:02 Pulse Oximetry 98 11/26/24 10:02 Medical Decision Making This dictation utilizes [id number] dictation software and may contain unedited grammatical errors. 64 year-old female presents to ED today by POV/ambulating with her with a chief complaint of nausea/vomiting/diarrhea with onset 3 days ago, intractable. Quality described as generalized abdominal cramping, completely liquid diarrhea, no radiation to fever, cough, shortness of breath, chest pain, black/bloody diarrhea, coffee-ground emesis. Severity is described as severe. Palliating factors include tried dramamine for nausea. Provoking factors include nothing specific. Events leading up to the incident/Associated Symptoms: Patient endorses history appendectomy, hysterectomy, and diverticulosis. Patients' medical history: Hyperlipidemia. Family and social history: Noncontributory, no toxic food ingestion, partner does not have any gastroenteritis, denies EtOH or drug use. Pertinent exam findings / vital signs include mild left lower quadrant abdominal tenderness, benign cardiopulmonary exam, no rebound tenderness, negative Orellana sign, nontoxic and afebrile. Differential / pathologies of concern include diverticulitis, gastroenteritis, colitis, gastritis, SBO, gastroparesis, C. difficile. Diagnostic studies of: - CBC, CMP, UA, CRP, lactate, ESR, magnesium, lipase, CT ABD/pelvis with contrast. - CBC shows no leukocytosis, shows mild elevation in absolute neutrophils - CMP shows no acute abnormality - Magnesium mildly low at 1.6, repleted p.o. - CRP is elevated at 11.2 - Lipase negative - UA shows some protein and blood, no evidence of UTI - CT shows diffuse colitis, could be in the setting of gastroenteritis, no evidence of diverticulitis Interventions of: - Stool samples collected, pending, Rx for Zofran and recommend [id number] Imodium A-D. ED Course/Assessment/Plan: 64-year-old female presents with 3 days of nausea vomiting and diarrhea, recalls no toxic food ingestion, CT shows diffuse colitis with the patient's intractable nausea and vomiting I do suspect she has a viral gastroenteritis, stool studies are pending for C. difficile, Rx for Zofran, recommend [id number] Imodium A-D, stay well-hydrated and attempt oral intake after Zofran, strict return criteria for any continuation of intractable nausea or vomiting despite treatment, developing fever, worsening abdominal pain or any other emergent concerns. Findings not consistent with sepsis, perforation, diverticulitis, patient passed p.o. challenge. Disposition of gastroenteritis, hypomagnesemia. Patient verbalized understanding of the plan and return to ED criteria and engaged in shared decision making. Medical Records Medical records reviewed: Yes I reviewed the patient's medical records. Imaging Data Radiologic Study: Attestation: I personally reviewed and interpreted this imaging study as follows: Imaging: CT Scan Radiologist's impression: EXAM: CT ABDOMEN PELVIS W CLINICAL HISTORY: LLQ tender; intractable N/V/D. TECHNIQUE: Imaging Protocol: Axial computed tomography images with coronal and sagittal reformatted images were created and reviewed CONTRAST MATERIAL: Intravenous: Omnipaque-350 75cc Oral: None COMPARISON: No exams were available for comparison FINDINGS: VISUALIZED LUNG BASES: No nodules nor pleural effusions evident. ABDOMEN: There is no ascites. LIVER: There is a well-defined cyst in the right hepatic lobe which measures 3.5 cm by 1.6 cm by 2.1 cm. No other focal findings in the liver and no dilated intrahepatic ducts. GALLBLADDER/BILIARY: No obvious gallbladder pathology. CBD is not dilated. PANCREAS: There are few tiny parenchymal calcifications in the body and tail. No pancreatic masses nor dilated pancreatic duct. SPLEEN: Spleen is not enlarged. No obvious intrasplenic lesions. Splenic and portal veins are patent. ADRENALS: There is some thickening of the medial limb of the left adrenal gland and medial limb of the right adrenal gland. The lateral limbs of both adrenal glands appear unremarkable. KIDNEYS:No cysts evident. No solid renal masses. No calculi nor hydronephrosis.. ABDOMINAL AORTA: Abdominal aorta is not enlarged. LYMPH NODES:There is no retroperitoneal nor paraaortic adenopathy. ABDOMINAL WALL: No evidence of significant anterior abdominal wall nor inguinal hernia. GI: Evaluation of the bowel is somewhat limited due to lack of oral contrast. However, there appears to be a probable colitis pattern involving most of the colon. There is also diverticulosis of the sigmoid without evidence of obvious acute diverticulitis. PELVIS: GI: The appendix is not identified as a separate structure. There is, however, no evidence of obvious acute appendicitis. LYMPH NODES: There is no intrapelvic nor inguinal adenopathy. REPRODUCTIVE: The uterus is surgically absent. There are no abnormal adnexal masses nor free fluid in the pelvis. URINARY BLADDER: No calculi nor obvious masses evident OSSEOUS: No fractures and no significant osseous lesions. There is disc space narrowing at L2-3 level. IMPRESSION: 1. There appears to be a diffuse colitis pattern. This may be exaggerated by absence of enteric contrast within the lumen of the large bowel. 2. There is extensive sigmoid diverticulosis without evidence of obvious acute diverticulitis. 3. Uterus is surgically absent. No abnormal adnexal masses. 4. Benign cyst in the right hepatic lobe measuring 3.5 x 2.1 by 1.6 cm. 5.. There is thickening of the medial limbs of both adrenal glands. Possibly representing adenomas or an element of hyperplasia. Report called by myself to ER provider 11/26/2024 at 12 noon Lab Data Lab results reviewed: Yes I reviewed the patient's lab results. Labs: Laboratory Tests Range/Units 11/26/24 11/26/24 11/26/24 10:09 10:21 10:55 WBC Cancelled 9.50 RBC Cancelled 4.73 Hgb Cancelled 15.0 Hct Cancelled 43.8 MCV Cancelled 93 MCH Cancelled 31.7 MCHC Cancelled 34.2 RDW Cancelled 12.9 Plt Count Cancelled 220 MPV Cancelled 9.1 Immature Gran % Cancelled 0.1 Neutrophils % Cancelled 81.0 Band Neutrophils % Cancelled Lymphocytes % Cancelled 7.4 Atypical Lymphs % Cancelled Monocytes % Cancelled 10.9 Eosinophils % Cancelled 0.1 Basophils % Cancelled 0.5 Metamyelocytes % Cancelled Myelocytes % Cancelled Promyelocytes % Cancelled Other Cells % Cancelled Nucleated RBC % Cancelled 0.0 Absolute Neutrophils Cancelled 7.69 H Absolute Lymphocytes Cancelled 0.70 L Absolute Monocytes Cancelled 1.04 H Absolute Eosinophils Cancelled 0.01 Absolute Basophils Cancelled 0.05 RBC Morphology Cancelled Polychromasia Cancelled Hypochromasia Cancelled Poikilocytosis Cancelled Basophilic Stippling Cancelled Anisocytosis Cancelled Microcytosis Cancelled Macrocytosis Cancelled Spherocytes Cancelled Tear Drop Cells Cancelled Ovalocytes Cancelled Stomatocytes Cancelled [place]ma[place] Bodies Cancelled Neptali Cells/Echinocytes Cancelled Acanthocytes (Spur) Cancelled Schistocytes Cancelled ESR Cancelled 30 VBG Lactate (<or=2.0) mmol/L Sodium Cancelled 136 Potassium Cancelled 3.6 Chloride Cancelled 99 Carbon Dioxide Cancelled 23.2 Anion Gap Cancelled 13.8 H BUN Cancelled 9 Creatinine Cancelled 0.9 Est GFR (CKD-EPI 2020) Cancelled 71.83 Glucose Cancelled 170 H Calcium Cancelled 10.0 Magnesium Cancelled 1.6 L Total Bilirubin Cancelled 0.6 AST Cancelled 20 ALT Cancelled 41 Alkaline Phosphatase Cancelled 94 C-Reactive Protein Cancelled 11.26 H Total Protein Cancelled 7.8 Albumin Cancelled 3.8 Lipase (<78) U/L 33 Urine Color (Yellow) Yellow Urine Clarity (Clear) Sl Cloudy Urine pH (5-8) 6.0 Ur Specific [place] (1.005-1.025) 1.025 Urine Protein (Neg-Trace) mg/dL 100 H Urine Ketones (Negative) mg/dL Negative Urine Blood (Negative) Moderate H Urine Nitrite (Negative) Negative Urine Bilirubin (Negative) Negative Urine Urobilinogen (Up to 0.2) mg/dL 0.2 Ur Leukocyte Esterase (Negative) Negative Urine RBC (0-2) HPF 10-20 H Urine WBC (0-5) HPF 0-2 Ur Epithelial Cells (Negative) HPF Rare Urine Crystals (Negative) HPF Negative Urine Bacteria (Negative) HPF Few Urine Casts (Negative) LPF Negative Urine Mucus (Negative) Moderate Ur Culture Indicated? No Urine Glucose (Negative) mg/dL Negative Range/Units 11/26/24 11:12 WBC RBC Hgb Hct MCV MCH MCHC RDW Plt Count MPV Immature Gran % Neutrophils % Band Neutrophils % Lymphocytes % Atypical Lymphs % Monocytes % Eosinophils % Basophils % Metamyelocytes % Myelocytes % Promyelocytes % Other Cells % Nucleated RBC % Absolute Neutrophils Absolute Lymphocytes Absolute Monocytes Absolute Eosinophils Absolute Basophils RBC Morphology Polychromasia Hypochromasia Poikilocytosis Basophilic Stippling Anisocytosis Microcytosis Macrocytosis Spherocytes Tear Drop Cells Ovalocytes Stomatocytes [place] Bodies Rhodelia Cells/Echinocytes Acanthocytes (Spur) Schistocytes ESR VBG Lactate (<or=2.0) mmol/L 1.7 Sodium Potassium Chloride Carbon Dioxide Anion Gap BUN Creatinine Est GFR (CKD-EPI 2020) Glucose Calcium Magnesium Total Bilirubin AST ALT Alkaline Phosphatase C-Reactive Protein Total Protein Albumin Lipase (<78) U/L Urine Color (Yellow) Urine Clarity (Clear) Urine pH (5-8) Ur Specific [place] (1.005-1.025) Urine Protein (Neg-Trace) mg/dL Urine Ketones (Negative) mg/dL Urine Blood (Negative) Urine Nitrite (Negative) Urine Bilirubin (Negative) Urine Urobilinogen (Up to 0.2) mg/dL Ur Leukocyte Esterase (Negative) Urine RBC (0-2) HPF Urine WBC (0-5) HPF Ur Epithelial Cells (Negative) HPF Urine Crystals (Negative) HPF Urine Bacteria (Negative) HPF Urine Casts (Negative) LPF Urine Mucus (Negative) Ur Culture Indicated? Urine Glucose (Negative) mg/dL Quality:SDOH Health Related Social Needs: No Data to Display PFSH All Active Problems (Updated 11/26/24 @ 13:28 by KOSTA Scott) Hypomagnesemia (Acute) Gastroenteritis (Acute) Numbness and tingling of both upper extremities (Acute) Acquired hammertoe of right foot (Acute) Acquired hammertoe of left foot (Acute) Hallux valgus (acquired), left foot (Acute) Hallux valgus (acquired), right foot (Acute) Callus under metatarsal head (Acute) TMJ (temporomandibular joint disorder) (Acute) Ear fullness (Acute) Sensorineural hearing loss (SNHL) of both ears (Acute) Atrial fibrillation (Chronic) Hyperlipidemia (Acute) Medical History (Updated 11/26/24 @ 13:28 by KOSTA Scott) Mood disorder History of hormone replacement therapy Bilateral knee pain Menopause Adjustment disorder Surgical History (Updated 06/07/24 @ 08:41 by Aquiles Rodriguez MD) History of bladder surgery 2021-Sling History of total knee replacement 2021 Status post breast reduction History of bunionectomy H/O: hysterectomy H/O colonoscopy 12/18/20 Social History Smoking/Tobacco Use Status: Former Tobacco Use Quit Date: 06/19/79 Smoking risk assessment performed?: Yes Alcohol Intake: never Drug use: Never Substance use type: marijuana and sedatives Housing: house Communication Needs: Corrective Lenses Pets and animals: Yes Pets and animals: dog(s) Do you feel safe at home: Yes Do you feel safe in your relationship?: Yes
--- NOTE | 2024-11-26 10:30 | DI.CT_ITS ---
Exam(s) CT ABDOMEN PELVIS W EXAM: CT ABDOMEN PELVIS W CLINICAL HISTORY: LLQ tender; intractable N/V/D. TECHNIQUE: Imaging Protocol: Axial computed tomography images with coronal and sagittal reformatted images were created and reviewed CONTRAST MATERIAL: Intravenous: Omnipaque-350 75cc Oral: None COMPARISON: No exams were available for comparison FINDINGS: VISUALIZED LUNG BASES: No nodules nor pleural effusions evident. ABDOMEN: There is no ascites. LIVER: There is a well-defined cyst in the right hepatic lobe which measures 3.5 cm by 1.6 cm by 2.1 cm. No other focal findings in the liver and no dilated intrahepatic ducts. GALLBLADDER/BILIARY: No obvious gallbladder pathology. CBD is not dilated. PANCREAS: There are few tiny parenchymal calcifications in the body and tail. No pancreatic masses n or dilated pancreatic duct. SPLEEN: Spleen is not enlarged. No obvious intrasplenic lesions. Splenic and portal veins are paten t. ADRENALS: There is some thickening of the medial limb of the left adrenal gland and medial limb of th e right adrenal gland. The lateral limbs of both adrenal glands appear unremarkable. KIDNEYS:No cysts evident. No solid renal masses. No calculi nor hydronephrosis.. ABDOMINAL AORTA: Abdominal aorta is not enlarged. LYMPH NODES:There is no retroperitoneal nor paraaortic adenopathy. ABDOMINAL WALL: No evidence of significant anterior abdominal wall nor inguinal hernia. GI: Evaluation of the bowel is somewhat limited due to lack of oral contrast. However, there appears to be a probable colitis pattern involving most of the colon. There is also diverticulosis of the s igmoid without evidence of obvious acute diverticulitis. PELVIS: GI: The appendix is not identified as a separate structure. There is, however, no evidence of obviou s acute appendicitis. LYMPH NODES: There is no intrapelvic nor inguinal adenopathy. REPRODUCTIVE: The uterus is surgically absent. There are no abnormal adnexal masses nor free fluid i n the pelvis. URINARY BLADDER: No calculi nor obvious masses evident OSSEOUS: No fractures and no significant osseous lesions. There is disc space narrowing at L2-3 level. IMPRESSION: 1. There appears to be a diffuse colitis pattern. This may be exaggerated by absence of enteric cont rast within the lumen of the large bowel. 2. There is extensive sigmoid diverticulosis without evidence of obvious acute diverticulitis. 3. Uterus is surgically absent. No abnormal adnexal masses. 4. Benign cyst in the right hepatic lobe measuring 3.5 x 2.1 by 1.6 cm. 5.. There is thickening of the medial limbs of both adrenal glands. Possibly representing adenomas or an element of hyperplasia. Report called by myself to ER provider 11/26/2024 at 12 noon RADIATION DOSE DELIVERED: 357.31mGy.cm Total DLP DATA REPOSITORY: All CT scans at this facility are submitted to the National Radiology Data Registry (NRDR) Dose Index Registry (DIR) with the [employer] (ACR). RADIATION OPTIMIZATION: All CT scans at this facility use at least one of these dose optimization te chniques: automated exposure control; mA and/or kV adjustment per patient size (includes targeted exa ms where dose is matched to clinical indication); or iterative reconstruction.
[2024-11-26 10:53] LABS: Abs Immature Grans 0.01 10^3/uL (0.0-0.06); Absolute Basophil Count 0.05 10^3/uL (0.0-0.2); Absolute Eosinophil Count 0.01 10^3/uL (0.0-0.7); Absolute Monocyte Count 1.04 10^3/uL (0.1-0.8); Absolute Neutrophil Count 7.69 10^3/uL (1.2-6.7); Basophils % 0.5 %; Eosinophils % 0.1 %; HCT 43.8 % (36.0-46.0); Immature Grans % 0.1 %; Lymphocytes % 7.4 %; MCH 31.7 pg (27.0-33.0); MCHC 34.2 % (32.0-36.0); MCV 93 fL (80-95); MPV 9.1 fL (8.0-11.0); Monocytes % 10.9 %; Platelet Count 220 10^3/uL (130-400); RBC 4.73 10^6/uL (3.93-5.22); RDW 12.9 % (11.7-14.6); RDW-SD 44.1 fL
[2024-11-26] MEDS: Ondansetron 4 MG/2 ML VIAL IVP (10:53)
[2024-11-26] MEDS: Ketorolac 15 MG/ML VIAL IVP (10:53)
[2024-11-26] MEDS: ACETAMINOPHEN 1,000 MG/100 ML BAG 400 MG IVPB (10:54)
[2024-11-26 10:55] LABS: ESR 30 mm/hr (0-30)
[2024-11-26] MEDS: Lactated Ringers 1,000 ML 1000 ML IV (10:55)
[2024-11-26 11:07] LABS: ALT 41 U/L (14-59); AST 20 U/L (15-37); Albumin 3.8 g/dL (3.4-5.0); Alkaline Phosphatase 94 U/L (46-116); Anion Gap 13.8 mmol/L (3-11); BUN 9 mg/dL (7-18); Bilirubin, Total 0.6 mg/dL (0.2-1.0); C-Reactive Protein 11.26 mg/dL (<or=0.5); CO2 23.2 mmol/L (21.0-32.0); CREATININE 0.9 mg/dL (0.55-1.02); Chloride 99 mmol/L (98-107); Estimated GFR 71.83 (mL/min/1.73m2); Glucose 170 mg/dL (74-106); Lipase 33 U/L (<78); Magnesium 1.6 mg/dL (1.8-2.4); Potassium 3.6 mmol/L (3.5-5.1); Sodium 136 mmol/L (136-145); Total Protein 7.8 g/dL (6.4-8.2)
[2024-11-26 11:12] LABS: Bilirubin Negative (Negative); Blood Moderate (Negative); Clarity Sl Cloudy (Clear); Glucose Negative (Negative); Ketones Negative (Negative); Leukocyte Esterase Negative (Negative); Nitrite Negative (Negative); Specific Gravity 1.025 (1.005-1.025); Urobilinogen 0.2 mg/dL (Up to 0.2)
[2024-11-26 11:19] LABS: Lactate 1.7 mmol/L (<or=2.0)
[2024-11-26 11:19] LABS: Epithelial Cells Rare HPF (Negative); WBC 0-2 HPF (0-5)
[2024-11-26 11:20] LABS: Bacteria Few HPF (Negative); C & S Indicated? No; Casts Negative LPF (Negative); Crystals Negative HPF (Negative); Mucus Moderate (Negative)
[2024-11-26] MEDS: Omnipaque 350 MG/ML 100 ML BTL IJ (11:38)
[2024-11-26] MEDS: Normal Saline - Diluent 50 ML VIAL IJ (11:38)
[2024-11-26] MEDS: Magnesium Oxide 400 MG TAB PO (13:53)
[2024-11-26 14:55] LABS: C Diff PCR Negative (Negative); EPI 027-NAP1-B1 PRESUMPTIVE NEGATIVE
[2024-11-27 12:05] LABS: Campylobacter PCR Positive (Negative); Salmonella PCR Negative (Negative); Shiga Toxin PCR Negative (Negative); Shigella/Enteroinvasive Ecoli Negative (Negative)
[2024-11-29 21:05] LABS: Calprotectin 397 mcg/g
--- NOTE | 2024-12-02 10:21 | NUR.NOTE ---
Nursing Note: Vale from the department of health called to follow up on a positive stool test on the patient. After attempting to find the answer to her questions with no success, I sent the phone call back to Dr. Merino.
== END 2024-11-26 13:59 | disposition home or self-care (01) ==
PROVIDERS: Emergency Provider Physician Assistant; PCP Nurse Practitioner Family
DX: K52.9 Noninfective gastroenteritis and colitis, unspecified (principal); E83.42 Hypomagnesemia; E78.5 Hyperlipidemia, unspecified; Z87.891 Personal history of nicotine dependence
CPT/HCPCS: 80053; 83690; 85652; 87015; 87269; 87272; 87505; 99285; 74177; 81003; 81015; 83605; 83630; 83735; 83993; 85025; 86140; 99284; J0131; J1885; J2405; J3490

== ENCOUNTER 2024-12-27 10:42 | Emergency (ER) | payer OTHER, SELFPAY ==
[2024-12-27 10:57] VITALS: BP 121/72; PULSE 90; RESP 16; TEMP 37.9; O2SAT 96
--- NOTE | 2024-12-27 11:26 | W.ED.GENAD ---
Discharge Plan Disposition Patient Disposition: Home Discharge Details Clinical Impression: Acute UTI Primary Care Provider: Anusha Valera ED Provider: Angel Hernandez Seymour Meds and New Rx's Prescriptions: New cephalexin 250 mg capsule 250 mg PO QID 5 Days Qty: 20 0RF methocarbamol 500 mg tablet 500 mg PO TID Qty: 20 0RF Continued omeprazole 40 mg capsule,delayed release(DR/EC) 40 mg PO DAILY Premarin 0.625 mg/gram cream 0.625 mg vaginal .COMPLEX Rx Instructions: 0.625 mg vaginally; off 5 days; repeat cycle to apply Mon/ trazodone 100 mg tablet 100 mg PO QHS PRN cyanocobalamin (vitamin B-12) 1,000 mcg capsule 1,000 mcg PO DAILY cholecalciferol (vitamin D3) 25 mcg (1,000 unit) capsule 25 mcg PO DAILY rosuvastatin 10 mg tablet 40 mg PO DAILY diazepam 2 mg tablet 2 mg PO ONCE PRN hydroxychloroquine 200 mg tablet 200 mg PO BID venlafaxine [Effexor XR] 150 mg capsule,extended release 24hr 75 mg PO DAILY vitamin B complex [Vitamins B Complex] Tablet 1 tab PO DAILY diclofenac sodium 100 mg tablet extended release 24 hr 100 mg PO DAILY methylphenidate HCl [Concerta] 54 mg tablet extended release 24hr 54 mg PO DAILY ondansetron 4 mg tablet,disintegrating 4 mg PO Q8H PRNQty: 30 0RF Discharge Instructions Additional Instructions: You are seen in the emergency department for your fevers. Your urinalysis shows concern for the possibility of urinary tract infection for which you you should begin taking antibiotics as directed. Your shoulder x-ray showed no sign of any fractures. Please return to the emergency department if you develop fevers chills nausea vomiting or any abdominal pain. Discharge Data Discharge Date/Time-TO BE ENTERED AT DEPARTURE: 12/27/24 13:25 HPI General Date/Time Provider Initiated Documentation: 12/27/24 11:26. HPI Narrative: MDM This is an overall very well-appearing afebrile and not tachycardic 64-year-old female with chills urinary urgency with hematuria concerning for acute UTI given moderate leuk esterase for which patient will receive treatment with cephalexin. She has a soft nontender abdomen so not suspicious for referred intra-abdominal pain. Specifically no right lower quadrant tenderness to suggest appendicitis. No left lower quadrant tenderness to suggest diverticulitis. She has not been vomiting so I do not feel that she requires IV antibiotics. She has reassuring vital signs so I am not suspicious for sepsis so I did not order blood cultures lactate. She is tolerating p.o. and did not have any TROY. Her CBC was notable for leukocytosis. Her left shoulder has no signs of dislocation. I obtained a shoulder radiograph which was unremarkable. Given discomfort I did not perform provocative testing. Patient had no erythema to her shoulder to suggest septic joint. No fluctuance to suggest abscess. No recent upper extremity PICC line to suggest increased risk for DVT and no history of IV drug use so I did not feel patient required a duplex study. No history of thoracic outlet syndrome and right hand warm and well-perfused so I am not concerned for critical limb ischemia so do not feel this patient requires any CT angiogram of her upper extremity. Patient is not objectively weak so I am not suspicious for CVA so I do not feel she requires a CT scan of her head. 12/30 I called patient at home to inquire as to how she was feeling. She reported that her urinary symptoms had improved slightly. She reported general weakness and being tired. I advised her to follow-up with her PCP. We discussed that she should return to the emergency department if she had any recurrent fevers could not eat or drink or wanted reassessment. She understood her return indications. HPI This is a patient with a history of left shoulder pain presenting with diarrhea, nausea, and fever. The patient has been experiencing discomfort in the left shoulder since last year. Despite consultations with an orthopedic surgeon and a drafter chief design, no significant findings were reported initially. An MRI conducted last month revealed a complete tear in the supraspinatus tendon. She is scheduled to see a doctor at [facility]. The pain is significant enough to disrupt her sleep. She reports no recent falls or changes in her routine that could have caused the injury. She has been managing the pain with Advil and occasionally Tylenol. The patient experienced severe chills last night, accompanied by uncontrollable teeth chattering and a slight fever today. She also reported feeling unwell this morning, necessitating a norris to the bathroom. She does not experience any abdominal pain but reports vomiting and diarrhea that started a few days ago. She experiences pain during bowel movements but not otherwise. She is concerned about a positive Campylobacter test from 11/2024, for which she completed a 3-day course of antibiotics. Exam General: Well-appearing in no acute distress speaking in complete sentences. Head: Normocephalic, atraumatic. Eye: Extraocular eye movements intact. No conjunctival injection. No scleral icterus. Ear, nose, mouth, throat: Grossly normal inspection. Normal voice, handling secretions normally. Neck: Trachea midline. Cardiovascular: Well-perfused distal extremities. Regular rate and rhythm Respiratory: Nonlabored respiration. Clear lungs bilaterally Gastrointestinal: Nondistended abdomen. Soft. Nontender. No rebound. No guarding. Musculoskeletal: Left upper extremity patient is able to abduct the shoulder to approximately 90 degrees. She is able to flex at the shoulder approximately 90 degrees. She can extend slightly at the shoulder. She is nontender shoulder with no signs of dislocation. No erythema. No fluctuance. She has a nontender humerus. She can fully flex and extend at the left elbow. She has a nontender left forearm warm well-perfused left hand with intact sensation and motor function. She has a 2+ left radial pulse. Skin: Normal for age and race, grossly normal temperature and turgor. No acute rash. Neurologic: Alert and appropriate, no apparent acute deficits. Psychiatric: Mood and manner are appropriate. Grooming and personal hygiene are appropriate. Related Data Home Medications ?Medication ?Instructions ?Recorded ?Confirmed rosuvastatin 10 mg tablet 40 mg PO DAILY 11/02/21 11/26/24 cholecalciferol (vitamin D3) 25 25 mcg PO DAILY 11/23/22 11/26/24 mcg (1,000 unit) capsule conjugated estrogens 0.625 mg/gram 0.625 mg vaginal .COMPLEX 11/23/22 11/26/24 vaginal cream (Premarin) cyanocobalamin (vitamin B-12) 1,000 mcg PO DAILY 11/23/22 11/26/24 1,000 mcg capsule omeprazole 40 mg capsule,delayed 40 mg PO DAILY 11/23/22 11/26/24 release trazodone 100 mg tablet 100 mg PO QHS PRN 11/23/22 11/26/24 diclofenac sodium 100 mg 100 mg PO DAILY 05/28/24 11/26/24 tablet,extended release 24 hr methylphenidate HCl 54 mg 54 mg PO DAILY 05/28/24 11/26/24 tablet,extended release 24 hr (Concerta) venlafaxine 150 mg 75 mg PO DAILY 05/28/24 11/26/24 capsule,extended release 24 hr (Effexor XR) vitamin B complex (Vitamins B 1 tab PO DAILY 05/28/24 11/26/24 Complex tablet) diazepam 2 mg tablet 2 mg PO ONCE PRN 11/21/24 11/26/24 hydroxychloroquine 200 mg tablet 200 mg PO BID 11/21/24 11/26/24 ondansetron 4 mg disintegrating 4 mg PO Q8H PRN #30 tabs 11/26/24 tablet cephalexin 250 mg capsule 250 mg PO QID 5 days #20 caps 12/27/24 methocarbamol 500 mg tablet 500 mg PO TID #20 tabs 12/27/24 Previous Rx's ?Medication ?Instructions ?Recorded ondansetron 4 mg disintegrating 4 mg PO Q8H PRN #30 tabs 11/26/24 tablet cephalexin 250 mg capsule 250 mg PO QID 5 days #20 caps 12/27/24 methocarbamol 500 mg tablet 500 mg PO TID #20 tabs 12/27/24 Allergies Allergy/AdvReac Type Severity Reaction Status Date / Time bisoprolol Allergy Unknown Skin Rash Verified 11/26/24 10:07 iodine Allergy Hives Verified 11/26/24 10:07 Sulfa (Sulfonamide Allergy Hives Verified 11/26/24 10:07 Antibiotics) absorbable suture material AdvReac Unknown Other (See Uncoded 11/26/24 10:07 Comment) General Stated Complaint: [facility] LEYDA: 3 Course Vital Signs Vital signs: Vital Signs Temperature 37.9 C H 12/27/24 10:57 Pulse 90 12/27/24 10:57 Respiratory Rate 16 12/27/24 10:57 Blood Pressure 121/72 12/27/24 10:57 Pulse Oximetry 96 12/27/24 10:57 Temperature 37.9 C H 12/27/24 10:57 Temperature Source Oral 12/27/24 10:57 Pulse 90 12/27/24 10:57 Respiratory Rate 16 12/27/24 10:57 Blood Pressure 121/72 12/27/24 10:57 Pulse Oximetry 96 12/27/24 10:57 Oxygen Delivery Method Room Air 12/27/24 10:57 Oxygen Flow Rate 0 12/27/24 10:57 Pain Level 9 12/27/24 10:57 PFSH All Active Problems (Updated 12/27/24 @ 13:11 by Angel Hernandez MD) Acute UTI (Acute) Numbness and tingling of both upper extremities (Acute) Acquired hammertoe of right foot (Acute) Acquired hammertoe of left foot (Acute) Hallux valgus (acquired), left foot (Acute) Hallux valgus (acquired), right foot (Acute) Callus under metatarsal head (Acute) TMJ (temporomandibular joint disorder) (Acute) Ear fullness (Acute) Sensorineural hearing loss (SNHL) of both ears (Acute) Atrial fibrillation (Chronic) Hyperlipidemia (Acute) Medical History (Updated 12/27/24 @ 13:11 by Angel Hernandez MD) Mood disorder History of hormone replacement therapy Bilateral knee pain Menopause Adjustment disorder Surgical History (Updated 06/07/24 @ 08:41 by Aquiles Rodriguez MD) History of bladder surgery 2021-Sling History of total knee replacement 2021 Status post breast reduction History of bunionectomy H/O: hysterectomy H/O colonoscopy 12/18/20 Social History Smoking/Tobacco Use Status: Former Tobacco Use Quit Date: 06/19/79 Smoking risk assessment performed?: Yes Alcohol Intake: never Drug use: Never Substance use type: marijuana and sedatives Housing: house Communication Needs: Corrective Lenses Pets and animals: Yes Pets and animals: dog(s) Do you feel safe at home: Yes Do you feel safe in your relationship?: Yes
--- NOTE | 2024-12-27 11:45 | DI.RAD_ITS ---
Exam(s) XR SHOULDER LT COMPLETE 2+V EXAM: XR SHOULDER LT COMPLETE 2+V CLINICAL HISTORY: left shoulder pain. TECHNIQUE: 2D digital imaging was performed. COMPARISON: No exams were available for comparison FINDINGS: Five views No evidence of fracture or dislocation nor abnormal soft tissue calcifications. The subacromial space is not diminished. There are no obvious degenerative changes in the glenohumeral joint and AC joint also appears relatively unremarkable. Bone density normal. No osseous lesions. Ipsilateral clavicle unremarkable. No adjacent rib fractures. IMPRESSION: No significant osseous findings in the left shoulder. DATA REPOSITORY: RADIATION DOSE DELIVERED:
[2024-12-27 11:59] LABS: Glucose Negative (Negative)
[2024-12-27 12:13] LABS: C & S Indicated? No; RBC 0-2 HPF (0-2)
[2024-12-27] MEDS: Methocarbamol 750 MG TAB PO (12:23)
[2024-12-27 12:32] LABS: Abs Immature Grans 0.08 10^3/uL (0.0-0.06); HCT 39.5 % (36.0-46.0); HGB 13.6 g/dL (11.2-15.7); Immature Grans % 0.5 %; MCH 31.8 pg (27.0-33.0); MCHC 34.4 % (32.0-36.0); MCV 92 fL (80-95); MPV 9.0 fL (8.0-11.0); Platelet Count 191 10^3/uL (130-400); RBC 4.28 10^6/uL (3.93-5.22); RDW 12.8 % (11.7-14.6); RDW-SD 43.3 fL; WBC 16.64 10^3/uL (4.4-10.8)
[2024-12-27 12:46] LABS: ALT 27 U/L (14-59); AST 12 U/L (15-37); Albumin 3.6 g/dL (3.4-5.0); Alkaline Phosphatase 90 U/L (46-116); Anion Gap 11.1 mmol/L (3-11); BUN 17 mg/dL (7-18); Bilirubin, Total 0.9 mg/dL (0.2-1.0); CO2 24.9 mmol/L (21.0-32.0); Calcium 9.3 mg/dL (8.5-10.1); Chloride 100 mmol/L (98-107); Estimated GFR 100.80 (mL/min/1.73m2); Glucose 110 mg/dL (74-106); Potassium 3.9 mmol/L (3.5-5.1); Sodium 136 mmol/L (136-145); Total Protein 6.8 g/dL (6.4-8.2)
[2024-12-27 13:24] VITALS: PULSE 82; RESP 18; TEMP 36.8; O2SAT 97
== END 2024-12-27 13:25 | disposition home or self-care (01) ==
PROVIDERS: Emergency Provider Emergency Medicine; PCP Nurse Practitioner Family
DX: N39.0 Urinary tract infection, site not specified (principal); M25.512 Pain in left shoulder; Z87.891 Personal history of nicotine dependence
CPT/HCPCS: 80053; 99283; 73030; 81003; 81015; 85025

== ENCOUNTER 2025-01-29 10:14 | Day surgery (SDC) | payer OTHER, SELFPAY ==
[2025-01-29 10:28] VITALS: BP 107/71; PULSE 84; RESP 16; TEMP 36.3; O2SAT 97
--- NOTE | 2025-01-29 10:48 | W.ANESPRE ---
General Info Date of Service Date Performed: 01/29/25 Height: 5 ft 4 in Weight: 69.4 kg Body Mass Index (BMI): 26.2 Surgical Procedure: Operation Date: 01/29/25 10:40 Proposed Procedure Side Surgeon p Lumbar Puncture MIKE Levy Allergies and Home Medications Allergies Allergy/AdvReac Type Severity Reaction Status Date / Time bisoprolol Allergy Unknown Skin Rash Verified 01/29/25 10:38 gabapentin Allergy Unknown Other (See Verified 01/29/25 10:38 Comment) iodine Allergy Hives Verified 01/29/25 10:38 Sulfa (Sulfonamide Allergy Hives Verified 01/29/25 10:38 Antibiotics) absorbable suture material AdvReac Unknown Other (See Uncoded 01/29/25 10:38 Comment) Home Medication ?Medication ?Instructions ?Recorded rosuvastatin 10 mg tablet 40 mg PO DAILY 11/02/21 conjugated estrogens 0.625 mg/gram 0.625 mg vaginal .COMPLEX 11/23/22 vaginal cream (Premarin) trazodone 100 mg tablet 100 mg PO HS 11/23/22 diclofenac sodium 100 mg 100 mg PO DAILY 05/28/24 tablet,extended release 24 hr venlafaxine 150 mg 75 mg PO DAILY 05/28/24 capsule,extended release 24 hr (Effexor XR) hydroxychloroquine 200 mg tablet 200 mg PO DAILY 11/21/24 ondansetron 4 mg disintegrating 4 mg PO Q8H PRN #30 tabs 11/26/24 tablet tolterodine 2 mg tablet 2 mg PO HS 01/13/25 cyclobenzaprine 5 mg tablet 5 mg PO DAILY PRN 01/29/25 cyclosporine 0.05 % eye drops in a 1 drp ophthalmic (eye) DAILY 01/29/25 dropperette Current Visit Medications: Current Medications Generic Name Dose Route Start Last Admin Trade Name Freq PRN Reason Stop Dose Admin Ringer's Solution 1,000 mls @ 80 mls/hr 01/29/25 06:00 IV 01/29/25 23:59 INFUSION SUSAN IV Miscellaneous Supplies 1 each 01/29/25 06:00 Iv Access IV 01/29/25 23:59 DIRECTED SUSAN Sodium Chloride 0 ml 01/29/25 06:00 Normal Saline Flush 10 Ml Syr IV 01/29/25 23:59 PRN PRN Sodium Chloride 0 ml 01/29/25 06:00 Normal Saline 10 Ml Vial IJ 01/29/25 23:59 DIRECTED PRN Sterile Water 0 ml 01/29/25 06:00 Water,Injection,Sterile 10 Ml Vial IJ 01/29/25 23:59 DIRECTED PRN PFSH Active Problems Active Problems: Problem Status Onset Code Demyelinating changes in brain Acute G37.9 Radiologically isolated syndrome Acute R93.0 Right carpal tunnel syndrome Acute G56.01 Ulnar neuropathy of left upper extremity Acute G56.22 Numbness and tingling of both upper extremities Acute R20.0, R20.2 Posterior subcapsular age-related cataract of left eye Resolved H25.042 Nuclear age-related cataract, left eye Resolved H25.12 Posterior subcapsular age-related cataract, right eye Resolved H25.041 Nuclear age-related cataract, right eye Resolved H25.11 Acquired hammertoe of right foot Acute M20.41 Acquired hammertoe of left foot Acute M20.42 Hallux valgus (acquired), left foot Acute M20.12 Hallux valgus (acquired), right foot Acute M20.11 Callus under metatarsal head Acute L84 TMJ (temporomandibular joint disorder) Acute M26.609 Ear fullness Acute H93.8X9 Sensorineural hearing loss (SNHL) of both ears Acute H90.3 Atrial fibrillation Chronic I48.91 Hyperlipidemia Acute E78.5 Medical History Medical History Mood disorder History of hormone replacement therapy Bilateral knee pain Menopause Adjustment disorder Surgical History Surgical History History of bladder surgery 2021-Sling History of total knee replacement 2021 Status post breast reduction History of bunionectomy H/O: hysterectomy H/O colonoscopy 12/18/20 Tobacco Smoking/Tobacco Use Status: Former Tobacco Use Alcohol Alcohol Intake: never Substance Use Substance use: Never Substance use type: marijuana and sedatives Anesthesia Assessment and Plan Anesthesia History Personal History: No History of Anesthesia Complications Family History: No Family History of Anesthesia Complications Exercise Tolerance Exercise Tolerance: Metabolic Equivalents>4 Pertinent Negatives Pertinent Negatives: No Major Pulmonary Symptoms or Complaints Cardiac & Pulmonary Exam Cardiac Exam: Normal S1/S2 Heart Sounds Pulmonary Exam: Clear Bilateral Breath Sounds Implantable Cardiac Device Does patient have a Pacemaker or an ICD?: No Airway Exam Known Difficult Airway: No Mallampati Class: 2 Mouth Opening: Normal (> 3cm) Thyromental Distance: Greater than 3 cm Neck Range of Motion: Full ROM Neck Circumference: Normal Teeth Condition: Normal Dentition ASA Classification ASA Score: ASA 2 Emergency Case?: No NPO Status NPO Status: NPO Clears >2 hours, Solids >8 hours Anesthesia Plan Resuscitation Status: Full Code Anesthesia Technique: Spinal Anesthesia (Lumbar Puncture) Airway Planned: Natural Airway Monitors Used: Standard Monitors Preoperative Comments:: MKO given last time, no issues. no health history changes other than current workup. MKO for her lumbar puncture.
[2025-01-29 10:50] LABS: Lab Add On Test DONE
[2025-01-29 11:31] VITALS: BMI 26.2
--- NOTE | 2025-01-29 11:32 | W.ANESPROC ---
Lumbar Puncture Date Performed: 01/29/25 Procedure Time: 11:45 Requesting Provider: Ellyn Robertson Procedure Location: Day Surgery Unit Standard Monitors Applied: SpO2 and See EMR for corresponding vital signs Patient Position: Sitting Timeout Performed: Yes Sedation Given (Indicate Dose Given): MKO Melt PO Dose:: 1 Patient Mental Status: Sedate with meaningful communication Sterility: Hand Hygiene, Surgical Cap, Surgical Mask, Sterile Gloves, Sterile Drape/Sheet and Chlorhexidine Placement Site: L4-L5 Interspace Spinal Needle Type: Other (Pencan 24G) Needle Length: 4 Inch Lumbar Puncture Procedure: Site Prepped, Sterile Drape Placed, 1% Lidocaine to skin and subcutaneous tissue with 25G needle, Introducer Needle Used, Spinal Needle Placed, Negative Heme, Positive CSF Flow, CSF Specimen placed into Tubes in Sequential Order and Specimen Labeled, Sent to Lab Ultrasound: Not Used Paresthesia: None Number of Previous Attempts by Other Providers: 0 Number of Attempts (See previous attempts in note section): 1 Procedure Tolerated: No Complications and Patient tolerated well Procedure Outcome: Successful Performed By: Obi Bhat
[2025-01-29 12:00] VITALS: BP 116/70; PULSE 84; RESP 16; TEMP 36.3; O2SAT 96
--- NOTE | 2025-01-29 12:12 | W.ANESPOSTOP ---
Postoperative Evaluation Date, Time and Location Date Performed: 01/29/25 Time Performed: 12:12 Patient Location: Day Surgery Unit Vital Signs Most Recent Imported Vital Signs: Most Recent Vital Signs Temp Pulse Resp BP Pulse Ox 36.3 C L 84 16 116/70 96 01/29/25 12:00 01/29/25 12:00 01/29/25 12:00 01/29/25 12:00 01/29/25 12:00 Pain Score Most Recent Pain Score: Most Recent Pain Score Pain Level 0 01/29/25 12:00 Assessment Mental Status: Awake (Alert & Oriented to Patient Baseline) Airway and Respiratory Function: Patent airway with normal (patient baseline) respiratory exam Cardiovascular Function: Hemodynamically Stable Hydration Status: Adequately Hydrated Nausea & Vomiting: No Nausea or Vomiting Pain: Pt. Denies Any Pain Peripheral Nerve Block: Patient did not receive a nerve block
[2025-01-29 12:29] VITALS: BP 105/76; PULSE 79; RESP 16; TEMP 36; O2SAT 97
[2025-01-29 12:32] LABS: Xanthochromia Absent
[2025-01-29 12:34] LABS: RBC 1 /mm3 (0-5); WBC 1 /uL (0-5)
[2025-01-31 15:45] LABS: CSF Bands 13 bands; CSF Olig Bands Interpretation 12 bands (<2); Serum Bands 1 bands
[2025-02-01 10:43] LABS: Albumin Quotient, CSF/Serum 4.95 (<=14); Albumin, CSF 21.8 mg/dL (<=27.0); Albumin, S 4400 mg/dL (3500-5000); IgG Index, CSF 0.92 (<=0.70); IgG, CSF 2.7 mg/dL (<=8.1); IgG, S 593 mg/dL (767 - 1590); IgG/Albumin, CSF 0.12 (<=0.21); IgG/Albumin, S 0.13 (<=0.40); Synthesis Rate, CSF 6.03 mg/24 h (<=12)
== END 2025-01-29 12:45 | disposition home or self-care (01) ==
PROVIDERS: Psychiatry & Neurology Neurology; PCP Nurse Practitioner Family; Visit Provider Nurse Anesthetist, Certified Registered
PROC: 009U3ZZ Drainage of Spinal Canal, Percutaneous Approach (ICD-10-PCS; CPT 62270; principal; 2025-01-29 10:30)
DX: G37.9 Demyelinating disease of central nervous system, unspecified (principal)
CPT/HCPCS: 62270; 82945; 89050; 89051; 82040; 82042; 82784; 83916; 84157; 87070; 87205